=== PATIENT | female | born 2000 | race Caucasian/White ===

== ENCOUNTER 2024-03-28 18:33 | Emergency (ER) | payer MEDICAID ==
[~2024-03-28] VITALS: Ht 154.9 cm; Wt 78.0 kg
[2024-03-28 18:40] VITALS: BP 118/74; PULSE 99; RESP 16; TEMP 98.5; O2SAT 99
[2024-03-28] MEDS: ONDANSETRON HCL 4MG/2ML INJ IV ONE (21:17)
[2024-03-28] MEDS: SODIUM CHLORIDE 0.9% 1,000 ML IV ONE (21:17)
[2024-03-28 21:25] LABS: BASOPHILS % 0.1 % (0.0-2.0); EOSINOPHILS % 0.5 % (0.0-5.0); HEMATOCRIT. 37.7 % (36.0-48.0); MEAN CORPUSCULAR HGB CONC 34.4 g/dL (31.0-37.0); MEAN CORPUSCULAR VOLUME 87.2 fL (81.0-99.0); MEAN PLATELET VOLUME 7.7 fl (7.4-10.4); MONOCYTES % 5.4 % (2.0-8.0); PLATELET 322 x1000/uL (130-400); RED BLOOD CELL COUNT 4.32 mill/uL (4.2-5.4); RED CELL DISTRIBUTION WIDTH 13.4 % (11.6-14.6); WHITE BLOOD COUNT 12.8 x1000/uL (4.5-11.0)
[2024-03-28 21:32] LABS: CHLORIDE 103 mEq/L (98-107); POTASSIUM 3.4 mEq/L (3.5-5.1); SODIUM 136 mEq/L (136-145)
[2024-03-28 21:33] LABS: CALCIUM 8.6 mg/dL (8.7-10.4); CARBON DIOXIDE 21 mEq/L (21-32)
[2024-03-28 21:38] LABS: CREATININE 0.5 mg/dL (0.6-1.0); GLUCOSE 79 mg/dL (70-105); UREA NITROGEN BLOOD 7 mg/dL (9-23)
[2024-03-28 21:40] LABS: BETA HYDROXYBUTYRATE 0.4 mMol/L (0.0-0.3)
[2024-03-28 21:44] LABS: INR 0.9; PROTHROMBIN TIME 10.1 sec (9.6-11.0)
[2024-03-28 22:34] LABS: ALANINE AMINOTRANSFERASE 64 IU/L (10-49); ASPARTATE AMINOTRANSFERASE 35 IU/L (<34); BILIRUBIN DIRECT 0.1 mg/dL (<=3.0); BILIRUBIN TOTAL 0.5 mg/dL (0.1-1.0); PROTEIN TOTAL 6.8 g/dL (6.0-8.3)
[2024-03-28] MEDS ORDERED: ONDA4TAB11 PO (23:03)
== END 2024-03-28 23:07 | disposition home or self-care (01) ==
LOC: ER 18:33
DX: O21.0 Mild hyperemesis gravidarum (principal); Z3A.20 20 weeks gestation of pregnancy
CPT/HCPCS: 99285; 96374; 76705; 76805; 96361; 80076; 80048; 82010; 83690; 85025; 85610; 86850; 86900; 86901; 36415; J2405; J7030

== ENCOUNTER 2024-10-11 01:56 | Emergency (ER) | payer MEDICAID ==
[~2024-10-11] VITALS: Ht 160 cm; Wt 71.0 kg
[~2024-10-11 01:56] MED LIST: ONDA-239 PO
[2024-10-11 02:00] VITALS: O2SAT 99
[2024-10-11 02:25] VITALS: TEMP 37.00296
[2024-10-11] MEDS ORDERED: IBUP-2028 MT (03:32)
[2024-10-11] MEDS: FENTANYL CITRATE/PF 50MCG/ML 2ML VIAL IV ONE (03:33)
[2024-10-11 03:36] VITALS: BP 102/58; PULSE 66; RESP 10; O2SAT 99
== END 2024-10-11 04:24 | disposition home or self-care (01) ==
LOC: ER 01:56
DX: M25.571 Pain in right ankle and joints of right foot (principal); J45.909 Unspecified asthma, uncomplicated
CPT/HCPCS: 99284; 96374; 73610; 73630; J3010